=== PATIENT | male | born 1995 | race African-American/Black ===

== ENCOUNTER 2018-05-19 20:53 | Emergency (ER) | payer BC ==
[~2018-05-19] VITALS: Ht 185.4 cm; Wt 81.6 kg
[~2018-05-19 20:53] MED LIST: ALBU2.5V8 INH; PRED50TA PO
[2018-05-19 22:48] LABS: BASO # 0.1 x10^3/uL (0.0-0.2); BASO % 0 % (0-3); EOS % 0 % (0-3); HEMATOCRIT 46.3 % (39.0-53.0); HEMOGLOBIN 16.4 g/dL (13.0-17.5); LYMPH % 6 % (24-48); MEAN CORPUSCULAR HEMOGLOBIN 32 pg (25-35); MEAN CORPUSCULAR HGB CONC 36 g/dL (31-37); MEAN CORPUSCULAR VOLUME 91 fL (79-100); MONO # 0.4 x10^3/uL (0.0-1.1); MONO % 2 % (0-9); NEUT # 16.7 x10^3uL (1.8-7.7); NEUT % 92 % (31-73); PLATELET COUNT 291 x10^3/uL (140-400); RED BLOOD COUNT 5.07 x10^6/uL (4.30-5.70); RED CELL DISTRIBUTION WIDTH 13.3 % (11.5-14.5); WHITE BLOOD COUNT 18.1 x10^3/uL (4.0-11.0)
[2018-05-19] MEDS ORDERED: HYDROcodone/APAP 5/325MG 1 TAB TABLET PO ONE (23:00)
[2018-05-19] MEDS ORDERED: IPRATRPIUM/ALBUTEROL 0.5/2.5MG 3 ML NEBU. NEB ONE (23:00)
[2018-05-19 23:08] LABS: % LYMPHS 7 % (24-48); % MONOS 1 % (0-10); % SEGS 92 % (35-66)
[2018-05-19 23:10] LABS: PLT ESTIMATE ADEQUATE (ADEQUATE); TOXIC GRANULATION SLIGHT; TOXIC VACUOLATION SLIGHT
[2018-05-19] MEDS ORDERED: IBUP-1007 PO (23:42)
[2018-05-19] MEDS ORDERED: ALBU2.5V8 INH (23:42)
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
[2018-05-19] MEDS ORDERED: DOXYCYCLINE HYCLATE 100 MG TABLET PO ONE (23:45)
[2018-05-20] MEDS ORDERED: IPRATRPIUM/ALBUTEROL 0.5/2.5MG 3 ML NEBU. NEB ONE (00:15)
[2018-05-20 00:47] VITALS: BP 138/68
== END 2018-05-20 00:47 | disposition home or self-care (01) ==
LOC: ER 20:53
DX: J45.21 Mild intermittent asthma with (acute) exacerbation (principal)
CPT/HCPCS: 36415; 85007; 85025; 94640; 99284; J7620